=== PATIENT | female | born 1985 | race Caucasian/White ===

== ENCOUNTER 2017-07-17 20:58 | Emergency (ER) | payer MEDICAID ==
[~2017-07-17] VITALS: Ht 165.1 cm; Wt 90.7 kg
[2017-07-17 21:07] VITALS: BP_SYST 131
[2017-07-17] MEDS ORDERED: DIPH-TET-PERTUS Vaccine 0.5 ML VIAL (ADACEL) I.M. ONE (21:45)
[2017-07-17 22:25] VITALS: BP_SYST 146
== END 2017-07-17 22:25 | disposition home or self-care (01) ==
LOC: SED 20:58
DX: S91.331A Puncture wound without foreign body, right foot, initial encounter (principal); Z88.1 Allergy status to other antibiotic agents; W45.0XXA Nail entering through skin, initial encounter; Y93.01 Activity, walking, marching and hiking; Y92.89 Other specified places as the place of occurrence of the external cause; Y99.8 Other external cause status
CPT/HCPCS: 90715; 99283

== ENCOUNTER 2019-06-27 13:07 | Emergency (ER) | payer MEDICAID ==
[~2019-06-27] VITALS: Ht 165.1 cm; Wt 86.2 kg
[2019-06-27 13:07] VITALS: BP_SYST 135
--- NOTE | 2019-06-27 13:10 | NUR ---
Patient triaged and placed in waiting room. VSS and patient appears in no acute distress at this time. Accompanied by SELF, awaiting available bed, and MD notified of need for MSE.
--- NOTE | 2019-06-27 15:55 | NUR ---
BROUGHT BACK TO BED #3 AND REPORT GIVEN TO CAITLIN
--- NOTE | 2019-06-27 16:14 | NUR ---
PATIENT PRESENTS TO THE ER WITH HX OF DX BRONCHITIS FOR ONE WEEK AND FINISHING UP ON ANTIBIOTICS TODAY AND CONTINUINE ALBUEROL INHALER; PATIENT STATES HER BREATHING HAS NOT IMPROVED AND CONTINUES TO COUGH AND EXPERIENCE DYSPNEA; NO TRAUMA, NO OTHER REMARKABLE S/S, ERMD EVALUATION AT 1630 AND PLACED IN ER #1 AT 1600
--- NOTE | 2019-06-27 16:39 | NUR ---
ER Dr. Mejía at bedside examining patient.
[2019-06-27 16:59] VITALS: BP_SYST 101
--- NOTE | 2019-06-27 17:02 | NUR ---
REASSESSMENT BY ERMD; PATIENT PREPARED FOR DISCHARGE; ACI GIVEN AND PATIENT INDICATED FULL UNDERSTANDING; DISCHARGED AMBULATORY; UNCHANGED
== END 2019-06-27 17:02 | disposition home or self-care (01) ==
LOC: SED 13:07
DX: J06.9 Acute upper respiratory infection, unspecified (principal); Z88.1 Allergy status to other antibiotic agents
CPT/HCPCS: 71045; 99283

== ENCOUNTER 2020-03-13 12:51 | Emergency (ER) | payer MEDICAID ==
[~2020-03-13] VITALS: Ht 165.1 cm; Wt 95.3 kg
[2020-03-13 13:07] VITALS: BP_SYST 139
[2020-03-13 14:02] LABS: BASOPHILS # (AUTO) 0.1 K/uL (0.0-0.2); BASOPHILS % (AUTO) 0.5 % (0.0-2.0); EOSINOPHILS # (AUTO) 0.1 K/uL (0.0-0.4); HEMATOCRIT 39.7 % (36-48); HEMOGLOBIN 13.7 g/dL (12.0-16.0); LYMPHOCYTES # (AUTO) 2.2 K/uL (1.0-5.5); LYMPHOCYTES % (AUTO) 20.3 % (20.5-51.5); MEAN CORPUSCULAR HEMOGLOBIN 29 pg (27-31); MEAN CORPUSCULAR HGB CONC 34 % (32-36); MEAN CORPUSCULAR VOLUME 85 fL (79.0-98.0); MONOCYTES # (AUTO) 0.6 K/uL (0.0-1.0); MONOCYTES % (AUTO) 5.7 % (1.7-9.3); NEUTROPHILS # (AUTO) 7.9 K/uL (1.8-7.7); NEUTROPHILS % (AUTO) 72.5 % (40.0-70.0); PLATELET COUNT (AUTO) 363 K/uL (130-430); RED CELL DISTRIBUTION WIDTH 13.8 % (9.0-15.0); WHITE BLOOD COUNT (AUTO) 10.9 K/uL (4.8-10.8)
[2020-03-13 14:19] LABS: CALCIUM 9.2 mg/dL (8.4-11.0); CREATININE 0.72 mg/dL (0.55-1.30); POTASSIUM 3.9 mmol/L (3.5-5.1)
[2020-03-13 14:22] LABS: PROTHROMBIN TIME 9.7 SECS (9.5-12.5)
[2020-03-13 14:25] LABS: ALBUMIN 3.7 g/dL (3.4-4.8); TOTAL BILIRUBIN 0.3 mg/dL (0.0-1.0)
[2020-03-13 15:42] VITALS: BP_SYST 140
== END 2020-03-13 15:42 | disposition home or self-care (01) ==
LOC: SED 12:51
DX: K27.9 Peptic ulcer, site unspecified, unspecified as acute or chronic, without hemorrhage or perforation (principal); R10.13 Epigastric pain; Z88.1 Allergy status to other antibiotic agents
CPT/HCPCS: 36415; 80053; 81025; 82150-TC; 83605; 83690-TC; 84703; 85025; 85610-TC; 85730-TC; 99284